=== PATIENT | male | born 1995 | race African-American/Black ===

== ENCOUNTER 2017-09-28 05:24 | Emergency (ER) | payer OTHER ==
[2017-09-28] MEDS: KETOROLAC 30 MG/ML VIAL (J1885) IM (06:45)
[2017-09-28] MEDS: PERCOCET 5MG/325MG TAB PO (06:58)
== END 2017-09-28 06:59 | disposition home or self-care (01) ==
LOC: M ED 05:24
DX: S83.92XA Sprain of unspecified site of left knee, initial encounter (principal); X58.XXXA Exposure to other specified factors, initial encounter; Y92.099 Unspecified place in other non-institutional residence as the place of occurrence of the external cause; Y93.62 Activity, american flag or touch football; Y99.9 Unspecified external cause status
CPT/HCPCS: 73564

== ENCOUNTER 2020-02-07 17:23 | Emergency (ER) | payer OTHER ==
[~2020-02-07] VITALS: Ht 180.3 cm; Wt 78.6 kg
[2020-02-07 19:09] LABS: BASO % 0.4 % (0.0-1.0); EOS # 0.2 10^3/uL (0.0-0.5); EOS % 2.4 % (0.0-3.0); HEMATOCRIT 50.7 % (42.0-52.0); HEMOGLOBIN 14.8 g/dl (13.5-17.5); LYMPH # 1.6 10^3/uL (1.5-5.0); LYMPH % 23.6 % (24.0-44.0); MEAN CORPUSCULAR HEMOGLOBIN 19.9 pg (27.0-33.0); MEAN CORPUSCULAR HGB CONC 29.2 g/dl (32.0-36.5); MEAN CORPUSCULAR VOLUME 68.2 fl (80.0-96.0); MONO # 0.8 10^3/uL (0.0-0.8); MONO % 11.8 % (0.0-5.0); NEUTROPHILS # 4.2 10^3/uL (1.5-8.5); NEUTROPHILS % 61.7 % (36.0-66.0); PLATELET COUNT, AUTOMATED 326 10^3/uL (150-450); RED BLOOD COUNT 7.43 10^6/uL (4.30-6.10); WHITE BLOOD COUNT 6.8 10^3/uL (4.0-10.0)
--- NOTE | 2020-02-07 19:12 | REP ---
INDICATION: pain/constipated. COMPARISON: None. TECHNIQUE: Two views. FINDINGS: Moderate fecal material seen in the right colon and in the rectum. There are no dilated small bowel loops. There is no small bowel obstruction. There are no abnormal calcifications. The visualized osseous structures are unremarkable. IMPRESSION: Moderate fecal material right colon and rectum. <Electronically signed by Ambrose Jones > 02/07/20 [id number]
[2020-02-07 19:26] LABS: BACTERIA, URINE SMALL AMOUNT; BILIRUBIN, URINE MANUAL 1+ (NEGATIVE); CALCIUM OXALATE CRYSTALS,URINE SMALL AMOUNT /hpf; GLUCOSE, URINE (UA) MANUAL NEGATIVE (NEGATIVE); KETONE, URINE MANUAL 3+ mg/dL (NEGATIVE); RBC, URINE 0-1 /hpf (0-3); SQUAMOUS EPITHELIAL CELL URINE NONE SEEN /hpf (SMALL AMT); UROBILINOGEN, URINE MANUAL NORMAL (NORMAL)
[2020-02-07 19:27] LABS: MUCUS, URINE LARGE AMOUNT (NEGATIVE)
[2020-02-07] MEDS ORDERED: NS 1,000 ML IV ONE (19:30)
[2020-02-07 19:31] LABS: ALBUMIN 4.9 GM/DL (3.2-5.2); BILIRUBIN,DIRECT 0.2 MG/DL (0.0-0.2); BILIRUBIN,TOTAL 1.2 MG/DL (0.2-1.0); TOTAL PROTEIN 8.7 GM/DL (6.4-8.2)
--- NOTE | 2020-02-07 20:01 | REPVR ---
PROCEDURE INFORMATION: Exam: CT Abdomen And Pelvis Without Contrast Exam date and time: 02/07/2020 7:49 PM Age: 24 years old Clinical indication: Abdominal pain; Flank; Left; Additional info: Left flank pain TECHNIQUE: Imaging protocol: Computed tomography of the abdomen and pelvis without contrast. Radiation optimization: All CT scans at this facility use at least one of these dose optimization techniques: automated exposure control; mA and/or kV adjustment per patient size (includes targeted exams where dose is matched to clinical indication); or iterative reconstruction. COMPARISON: TX ABDOMEN (MIN 2 VIEW) 02/07/2020 6:39 PM FINDINGS: Lungs: No suspicious mass or airspace process in the visualized lung bases. Liver: Noncontrast liver shows no obvious lesion. Gallbladder and bile ducts: Gallbladder is present and shows no evidence of gallstone. Pancreas: Noncontrast pancreas shows no obvious mass or adjacent fluid. Spleen: Noncontrast spleen shows no obvious focal deformity. Adrenal glands: Adrenal glands are normal in appearance. Kidneys and ureters: Kidneys show no stone or hydronephrosis. Stomach and bowel: No evidence of small bowel obstruction. No evidence of acute diverticulitis. Prominent diffuse colonic stool, and rectum is distended to 5 cm diameter with desiccated stool. Appendix: Appendix is not seen. No RLQ inflammation to suggest appendicitis. Intraperitoneal space: No pneumoperitoneum. Vasculature: No aortic aneurysm. Lymph nodes: No enlarged lymph nodes. Urinary bladder: Urinary bladder appears normal. Bones/joints: Bony structures show no acute fracture or destructive process. Soft tissues: No concerning focal abnormality of the extra-abdominal and pelvic soft tissues. Other findings: Limited evaluation without enteric or IV contrast. IMPRESSION: 1. No evidence of renal stone or obstruction. No explanation for acute left flank pain. 2. Prominent colonic stool and probable mild rectal fecal impaction, measuring 5 cm diameter Electronically signed by: José Gutierrez On 02/07/2020 20:01:24 PM
[2020-02-07] MEDS ORDERED: FLEET OIL RETENTION ENEMA PR ONE (20:45)
[2020-02-07] MEDS ORDERED: MIRA3350 PO (22:30)
[2020-02-07] MEDS ORDERED: RA M1.74 PO (22:30)
[2020-02-07 22:37] VITALS: BP 138/68
== END 2020-02-07 22:38 | disposition home or self-care (01) ==
LOC: M ED 17:23
DX: K59.00 Constipation, unspecified (principal)

== ENCOUNTER 2020-08-16 12:07 | Emergency (ER) | payer OTHER ==
[~2020-08-16] VITALS: Ht 182.9 cm; Wt 84.1 kg
[~2020-08-16 12:07] MED LIST: MIRA3350 PO; RA M1.74 PO
--- NOTE | 2020-08-16 13:54 | REP ---
INDICATION: CHEST PAIN. COMPARISON: No comparison chest x-ray. TECHNIQUE: Two views.. FINDINGS: The lungs are well inflated and free of infiltrate. The pleural angles are sharp. The heart size is normal. Pulmonary vasculature is not increased. No significant bony abnormality is seen. IMPRESSION: Negative chest x-ray. <Electronically signed by Dougie Moreira > 08/16/20 [id number]
[2020-08-16 14:05] LABS: BASO % 0.4 % (0.0-1.0); EOS # 0.1 10^3/uL (0.0-0.5); HEMATOCRIT 49.2 % (42.0-52.0); HEMOGLOBIN 14.7 g/dl (13.5-17.5); LYMPH # 1.2 10^3/uL (1.5-5.0); MEAN CORPUSCULAR HEMOGLOBIN 20.4 pg (27.0-33.0); MEAN CORPUSCULAR HGB CONC 29.9 g/dl (32.0-36.5); MEAN CORPUSCULAR VOLUME 68.1 fl (80.0-96.0); MONO # 0.7 10^3/uL (0.0-0.8); MONO % 11.5 % (2.0-8.0); NEUTROPHILS # 3.6 10^3/uL (1.5-8.5); NEUTROPHILS % 64.6 % (36.0-66.0); PLATELET COUNT, AUTOMATED 296 10^3/uL (150-450); RED BLOOD COUNT 7.22 10^6/uL (4.30-6.10); WHITE BLOOD COUNT 5.6 10^3/uL (4.0-10.0)
[2020-08-16 14:21] LABS: BLOOD UREA NITROGEN 9 MG/DL (7-18); CALCIUM LEVEL 10.3 MG/DL (8.5-10.1); CARBON DIOXIDE LEVEL 30 MEQ/L (21-32); CHLORIDE LEVEL 104 MEQ/L (98-107); CREATININE FOR GFR 0.99 MG/DL (0.70-1.30); GLOMERULAR FILTRATION RATE > 60.0 (>60); GLUCOSE, FASTING 94 MG/DL (70-100); POTASSIUM SERUM 4.1 MEQ/L (3.5-5.1); SODIUM LEVEL 138 MEQ/L (136-145)
[2020-08-16 15:31] LABS: CK-MB VALUE MASS 1.5 NG/ML (<3.6); CPK CREATINE PHOSPHOKINASE 505 U/L (39-308); TROPONIN I < 0.02 NG/ML (< 0.10)
[2020-08-16] MEDS ORDERED: NS 1,000 ML IV ONE (16:00)
[2020-08-16] MEDS ORDERED: ACETAMINOPHEN 325 MG TAB PO ONE (16:05)
[2020-08-16 16:17] LABS: ALBUMIN 4.3 GM/DL (3.2-5.2); ALT/SGPT 36 U/L (12-78); BILIRUBIN,DIRECT 0.1 MG/DL (0.0-0.2); BILIRUBIN,TOTAL 0.6 MG/DL (0.2-1.0); TOTAL PROTEIN 8.1 GM/DL (6.4-8.2)
--- NOTE | 2020-08-16 17:14 | ECGEPIP ---
[facility] - ED Test Date: 2020-08-16 Pat Name: CONNOR IRELAND Department: Room: - Gender: Male Clerical Adviser: SANJAY : 1995 Requested By: Fanny Jeffries Order Number: [id number] Reading MD: Venkata Pelayo Measurements Intervals Moody Rate: 71 P: 81 HI: 204 QRS: 48 QRSD: 98 T: 24 QT: 366 QTc: 397 Interpretive Statements Normal sinus rhythm Comparison tracing not on file Electronically Signed on 08-16-2020 17:13:57 EDT by Venkata Pelayo
[2020-08-16] MEDS ORDERED: GI COCKTAIL 50ML BTL(HYOSCYAMINE/MAALOX/LIDOCAINE VISCOUS)(1:3:1) PO ONE (17:35)
[2020-08-16] MEDS ORDERED: OMEP40CA97 PO (18:43)
[2020-08-16 19:05] VITALS: BP 119/67
== END 2020-08-16 19:25 | disposition home or self-care (01) ==
LOC: M ED 12:07
DX: K21.9 Gastro-esophageal reflux disease without esophagitis (principal)

== ENCOUNTER 2022-09-29 05:15 | Emergency (ER) | payer OTHER ==
[~2022-09-29] VITALS: Ht 180.3 cm; Wt 83.4 kg
[~2022-09-29 05:15] MED LIST changes: +OMEP40CA4 PO
[2022-09-29 06:31] VITALS: BP 131/88; TEMP 98.7; O2SAT 99
[2022-09-29] MEDS ORDERED: AMOX875T PO (06:57)
[2022-09-29] MEDS ORDERED: AMOXICILLIN 500 MG CAP PO ONE (07:00)
== END 2022-09-29 07:09 | disposition home or self-care (01) ==
LOC: M ED 05:15
DX: J03.90 Acute tonsillitis, unspecified (principal)

== ENCOUNTER 2023-04-20 12:25 | Emergency (ER) | payer OTHER ==
[~2023-04-20] VITALS: Ht 180.3 cm; Wt 91.8 kg
[~2023-04-20 12:25] MED LIST changes: +AMOX875T PO
[2023-04-20] MEDS ORDERED: MIRA3350 PO (17:42)
[2023-04-20] MEDS ORDERED: FAMO20TA PO (17:42)
[2023-04-20 17:51] VITALS: BP 147/74; TEMP 97.7; O2SAT 97
== END 2023-04-20 17:52 | disposition home or self-care (01) ==
LOC: M ED 12:25
DX: K21.9 Gastro-esophageal reflux disease without esophagitis (principal); K59.00 Constipation, unspecified